=== PATIENT | female | born 1985 | race Caucasian/White ===

== ENCOUNTER → 2018-04-23 | Outpatient (CLI) | payer BC | LOC: FIMAGING 14:29 | PROVIDERS: ATTEND Obstetrics & Gynecology | DX: Z30.431 Encounter for routine checking of intrauterine contraceptive device (principal) ==

== ENCOUNTER → 2018-08-06 | Outpatient (CLI) | payer BC | LOC: FIMAGING 14:18 | PROVIDERS: ATTEND Obstetrics & Gynecology | DX: Z34.00 Encounter for supervision of normal first pregnancy, unspecified trimester (principal); Z3A.13 13 weeks gestation of pregnancy ==

== ENCOUNTER → 2018-09-18 | Outpatient (CLI) | payer BC | LOC: FIMAGING 13:21 | PROVIDERS: ATTEND Obstetrics & Gynecology | DX: Z34.02 Encounter for supervision of normal first pregnancy, second trimester (principal); Z3A.19 19 weeks gestation of pregnancy ==

== ENCOUNTER → 2018-10-11 | Outpatient (CLI) | payer BC | LOC: FIMAGING 13:58 | PROVIDERS: ATTEND Obstetrics & Gynecology | DX: Z34.02 Encounter for supervision of normal first pregnancy, second trimester (principal) ==

== ENCOUNTER → 2018-10-18 | Outpatient (CLI) | payer BC | LOC: FIMAGING 08:18 ==